=== PATIENT | male | born 1955 | race Caucasian/White ===

== ENCOUNTER 2021-03-07 22:45 | Inpatient (IN) | payer BC ==
[2021-03-07] MEDS ORDERED: Lidocaine Viscous Sol 2% 15 ml UD Cup ONE (23:19)
[2021-03-08 00:23] LABS: ALT (SGPT) 9 U/L (8-55); AST (SGOT) 11 U/L (5-34); Alkaline Phosphatase 55 U/L (40-110); Anion Gap 12 mmol/L (10-20); BUN (Urea Nitrogen) 24 mg/dL (8.4-25.7); Bilirubin, Total 0.4 mg/dL (0.2-1.2); Calc. Creatinine Clearance 0 mL/min (70-130); Calcium 7.6 mg/dL (7.8-10.44); Carbon Dioxide 24 mmol/L (23-31); Chloride 107 mmol/L (98-107); Glucose 97 mg/dL (80-115); Lipase 6 U/L (8-78); Magnesium 1.7 mg/dL (1.6-2.6); Sodium 141 mmol/L (136-145)
[2021-03-08 00:25] LABS: #Lymphocytes 0.2 thou/uL (1.20-3.40); #Monocytes 0.1 thou/uL (0.11-0.59); #Neutrophils 1.2 thou/uL (1.40-6.50); %Eosinophils 0.2 % (0.0-10.0); %Lymphocytes 13.4 % (21.0-51.0); %Monocytes 7.4 % (0.0-10.0); Hemoglobin 9.7 g/dL (14.0-18.0); MDiff Complete? YES; Mean Corpuscular HGB CONC 32.7 g/dL (32.0-36.0); Mean Corpuscular Hemoglobin 26.2 pg (27.0-31.0); Mean Corpuscular Volume 80.2 fL (78.0-98.0); Mean Platelet Volume 7.9 fL (7.4-10.4); Platelet Count 224 thou/uL (130-400); RBC Distribution Width 19.9 % (11.5-14.5); Red Blood Cell (RBC) Count 3.69 mill/uL (4.70-6.10); Reflex for Review?? YES; White Blood Cell (WBC) Count 1.5 thou/uL (4.8-10.8)
[2021-03-08 00:26] LABS: Band 44 % (5-11); Hypochromia SLIGHT = 6-15 cells (100X) (0-5/hpf); Lymphocytes 8 % (21-51); Monocytes 6 % (0-10); Neutrophil 42 % (42-75); Platelet Morphology Comment Appears Adequate
[2021-03-08 00:28] LABS: Potassium 2.2 mmol/L (3.5-5.1)
[2021-03-08] MEDS ORDERED: Potassium Chloride 20 MEQ TAB ONE (00:51)
[2021-03-08] MEDS ORDERED: Potassium Chloride 20 MEQ/100 ML PREMIX BAG ONE (01:27)
[2021-03-08] MEDS ORDERED: Acetaminophen 325 MG TAB PO PRN (03:46)
[2021-03-08] MEDS ORDERED: Norepinephrine 8 MG/0.9% NS 250 ML ONE (04:11)
[2021-03-08] MEDS ORDERED: Ondansetron PF 4 MG/2 ML Vial ONE ×2 (04:34→04:40)
[2021-03-08] MEDS ORDERED: Piperacillin/Tazobactam 3.375 GM VIAL ONE (04:56)
[2021-03-08 05:19] LABS: SARS-CoV-2 NAA Rapid Test Not Detected (NotDetected)
[2021-03-08 05:29] LABS: Bilirubin Negative (Negative); Blood, Urine Negative (Negative); Clarity Clear (Clear); Glucose, Urine (Dipstick) Normal (Negative); Ketone, Urine Negative (Negative); Leukocyte Negative Leu/uL (Negative); Mucous/LPF 3+ LPF (<2+); Nitrite Negative (Negative); Protein, Urine (Dipstick) 30 mg/dL (Neg-Trace); Squamous Epithelial None Seen HPF (0-3); Urobilinogen Normal mg/dL (Less than 2)
[2021-03-08 05:31] LABS: Bacteria/HPF 1+ HPF (None Seen); Specific Gravity, Urine 1.044 (1.002-1.036)
[2021-03-08] MEDS: Potassium Chloride 20 MEQ in Premix Bag 1 BAG IVPB SCH (07:06)
[2021-03-08] MEDS: Sodium Chloride 0.9% 1,000 ML IV SCH ×2 (07:43→12:58)
[2021-03-08] MEDS ORDERED: Norepinephrine 8 MG/0.9% NS 250 ML IVPB SCH (07:45)
[2021-03-08] MEDS ORDERED: Piperacillin/Tazobactam 3.375 GM in Sodium Chloride 0.9% 100 ML IVPB SCH (08:00)
[2021-03-08] MEDS ORDERED: Sodium Chloride 0.9% (PF) 10 ML VIAL FS PRN (09:30)
[2021-03-08] MEDS ORDERED: Electrolyte Replacement Protocol FS PRN (09:30)
[2021-03-08] MEDS ORDERED: Electrolyte Replacement Protocol 1 EACH FS SCH (09:30)
[2021-03-08] MEDS: Pantoprazole 40 MG VIAL IVP SCH ×2 (09:52→20:23)
[2021-03-08 10:24] LABS: Anion Gap 7 mmol/L (10-20); BUN (Urea Nitrogen) 19 mg/dL (8.4-25.7); Calc. Creatinine Clearance 116 mL/min (70-130); Calcium 5.1 mg/dL (7.8-10.44); Carbon Dioxide 16 mmol/L (23-31); Chloride 122 mmol/L (98-107); Glucose 74 mg/dL (80-115); Magnesium 1.2 mg/dL (1.6-2.6); Potassium 2.3 mmol/L (3.5-5.1); Sodium 143 mmol/L (136-145)
[2021-03-08] MEDS ORDERED: Magnesium 2 GM/50 ML(in water) 2 GM in Premix Bag 1 BAG IVPB SCH ×2 (10:30→11:15)
[2021-03-08] MEDS ORDERED: Enoxaparin Sodium 40 MG/0.4 ML SYRINGE SC SCH (11:00)
[2021-03-08] MEDS ORDERED: Potassium Chloride 40 MEQ in Premix Bag 1 BAG IVPB SCH (11:15)
[2021-03-08] MEDS: Potassium Chloride 40 MEQ in Premix Bag 1 BAG IVPB SCH ×2 (11:27→12:58)
[2021-03-08] MEDS: Piperacillin/Tazobactam 3.375 GM in Sodium Chloride 0.9% 100 ML IVPB SCH ×2 (12:58→20:24)
[2021-03-08] MEDS: Ondansetron PF 4 MG/2 ML Vial IVP PRN (13:04)
[2021-03-08] MEDS ORDERED: Iopamidol 370 76% 100 ML VIAL ONE (14:26)
[2021-03-08 14:54] LABS: Bacteria/HPF None Seen HPF (None Seen); Bilirubin Negative (Negative); Blood, Urine Negative (Negative); Clarity Clear (Clear); Glucose, Urine (Dipstick) Normal (Negative); Ketone, Urine Negative (Negative); Leukocyte Negative Leu/uL (Negative); Nitrite Negative (Negative); Protein, Urine (Dipstick) 30 mg/dL (Neg-Trace); Squamous Epithelial None Seen HPF (0-3); Urobilinogen Normal mg/dL (Less than 2); WBC/HPF 0-3 HPF (0-3); pH, Urine 5.5 (5.0-9.0)
[2021-03-08 14:56] LABS: Specific Gravity, Urine 1.056 (1.002-1.036)
[2021-03-08 14:57] LABS: Urine Culture Reflex No No
[2021-03-08 16:46] LABS: Potassium 4.4 mmol/L (3.5-5.1)
[2021-03-08] MEDS: Morphine 4 MG/ML VIAL SLOW IVP PRN (20:45)
[2021-03-09] MEDS: Sodium Chloride 0.9% 1,000 ML IV SCH ×4 (00:58→21:46)
[2021-03-09 04:44] LABS: Band 52 % (5-11); Hemoglobin 8.8 g/dL (14.0-18.0); Lymphocytes 2 % (21-51); MDiff Complete? YES; Mean Corpuscular HGB CONC 31.4 g/dL (32.0-36.0); Mean Corpuscular Volume 82.6 fL (78.0-98.0); Mean Platelet Volume 8.2 fL (7.4-10.4); Monocytes 3 % (0-10); Myelocyte 1 % (0-0); Neutrophil 42 % (42-75); Platelet Count 212 thou/uL (130-400); Platelet Morphology Comment Appears Adequate; RBC Distribution Width 19.8 % (11.5-14.5); RBC Morphology Normal; Red Blood Cell (RBC) Count 3.39 mill/uL (4.70-6.10); White Blood Cell (WBC) Count 16.5 thou/uL (4.8-10.8)
[2021-03-09 04:46] LABS: ALT (SGPT) 21 U/L (8-55); AST (SGOT) 54 U/L (5-34); Albumin 1.7 g/dL (3.4-4.8); Alkaline Phosphatase 121 U/L (40-110); Anion Gap 11 mmol/L (10-20); BUN (Urea Nitrogen) 29 mg/dL (8.4-25.7); Bilirubin, Total 0.5 mg/dL (0.2-1.2); Calc. Creatinine Clearance 70 mL/min (70-130); Calcium 7.2 mg/dL (7.8-10.44); Carbon Dioxide 19 mmol/L (23-31); Chloride 114 mmol/L (98-107); Glucose 74 mg/dL (80-115); Potassium 3.8 mmol/L (3.5-5.1); Protein, Total 3.7 g/dL (5.8-8.1); Sodium 140 mmol/L (136-145)
[2021-03-09] MEDS: Piperacillin/Tazobactam 3.375 GM in Sodium Chloride 0.9% 100 ML IVPB SCH ×3 (05:22→20:05)
[2021-03-09] MEDS ORDERED: Magnesium 2 GM/50 ML(in water) 2 GM in Premix Bag 1 BAG IVPB SCH (07:00)
[2021-03-09] MEDS: Morphine 4 MG/ML VIAL SLOW IVP PRN ×2 (08:47→20:03)
[2021-03-09] MEDS: Enoxaparin Sodium 40 MG/0.4 ML SYRINGE SC SCH (08:50)
[2021-03-09] MEDS: Pantoprazole 40 MG VIAL IVP SCH ×2 (08:50→20:04)
[2021-03-10] MEDS: Morphine 4 MG/ML VIAL SLOW IVP PRN ×2 (01:12→14:39)
[2021-03-10 04:59] LABS: Band 27 % (5-11); Hemoglobin 9.2 g/dL (14.0-18.0); Hypochromia SLIGHT = 6-15 cells (100X) (0-5/hpf); Lymphocytes 6 % (21-51); MDiff Complete? YES; Mean Corpuscular HGB CONC 31.6 g/dL (32.0-36.0); Mean Corpuscular Hemoglobin 26.1 pg (27.0-31.0); Mean Corpuscular Volume 82.7 fL (78.0-98.0); Mean Platelet Volume 7.9 fL (7.4-10.4); Monocytes 4 % (0-10); Neutrophil 63 % (42-75); Platelet Count 164 thou/uL (130-400); Platelet Morphology Comment Appears Adequate; RBC Distribution Width 19.8 % (11.5-14.5); Red Blood Cell (RBC) Count 3.51 mill/uL (4.70-6.10); White Blood Cell (WBC) Count 16.3 thou/uL (4.8-10.8)
[2021-03-10 05:05] LABS: ALT (SGPT) 26 U/L (8-55); AST (SGOT) 39 U/L (5-34); Albumin 1.8 g/dL (3.4-4.8); Alkaline Phosphatase 207 U/L (40-110); Anion Gap 11 mmol/L (10-20); BUN (Urea Nitrogen) 36 mg/dL (8.4-25.7); Bilirubin, Total 0.5 mg/dL (0.2-1.2); Calc. Creatinine Clearance 59 mL/min (70-130); Calcium 7.8 mg/dL (7.8-10.44); Carbon Dioxide 20 mmol/L (23-31); Chloride 111 mmol/L (98-107); Globulin 2.3 g/dL (2.4-3.5); Glucose 71 mg/dL (80-115); Magnesium 2.3 mg/dL (1.6-2.6); Potassium 4.1 mmol/L (3.5-5.1); Protein, Total 4.1 g/dL (5.8-8.1); Sodium 138 mmol/L (136-145)
[2021-03-10] MEDS: Sodium Chloride 0.9% 1,000 ML IV SCH ×3 (06:36→18:13)
[2021-03-10] MEDS: Piperacillin/Tazobactam 3.375 GM in Sodium Chloride 0.9% 100 ML IVPB SCH ×3 (06:37→20:53)
[2021-03-10] MEDS: Pantoprazole 40 MG VIAL IVP SCH ×2 (09:38→20:53)
[2021-03-10] MEDS: Enoxaparin Sodium 40 MG/0.4 ML SYRINGE SC SCH (09:38)
[2021-03-10 14:24] LABS: PTT 60.2 sec (22.9-36.1)
[2021-03-10 14:25] LABS: INR-International Normal Ratio 1.3; Prothrombin Time 16.7 sec (12.0-14.7)
[2021-03-10] MEDS ORDERED: Sodium Bicarbonate 2.5 MEQ/5 ML VIAL ONE (15:57)
[2021-03-10] MEDS ORDERED: Lidocaine 1% PF 5 ML VIAL ONE (15:57)
[2021-03-11] MEDS: Sodium Chloride 0.9% 1,000 ML IV SCH ×2 (04:48→10:13)
[2021-03-11] MEDS: Piperacillin/Tazobactam 3.375 GM in Sodium Chloride 0.9% 100 ML IVPB SCH ×3 (04:49→20:19)
[2021-03-11 05:39] LABS: Magnesium 2.3 mg/dL (1.6-2.6)
[2021-03-11] MEDS: Morphine 4 MG/ML VIAL SLOW IVP PRN ×2 (07:13→20:39)
[2021-03-11] MEDS: Pantoprazole 40 MG VIAL IVP SCH ×2 (10:10→20:20)
[2021-03-11] MEDS: Enoxaparin Sodium 40 MG/0.4 ML SYRINGE SC SCH (10:11)
[2021-03-12] MEDS: Piperacillin/Tazobactam 3.375 GM in Sodium Chloride 0.9% 100 ML IVPB SCH ×3 (05:20→20:41)
[2021-03-12] MEDS: Sodium Chloride 0.9% 1,000 ML IV SCH ×2 (05:20→20:41)
[2021-03-12] MEDS: Pantoprazole 40 MG VIAL IVP SCH ×2 (08:44→20:41)
[2021-03-12] MEDS: Enoxaparin Sodium 40 MG/0.4 ML SYRINGE SC SCH (08:45)
[2021-03-12 14:04] LABS: ALT (SGPT) 18 U/L (8-55); AST (SGOT) 23 U/L (5-34); Albumin 1.6 g/dL (3.4-4.8); Alkaline Phosphatase 403 U/L (40-110); Anion Gap 11 mmol/L (10-20); BUN (Urea Nitrogen) 26 mg/dL (8.4-25.7); Bilirubin, Total 0.4 mg/dL (0.2-1.2); Calc. Creatinine Clearance 119 mL/min (70-130); Calcium 7.6 mg/dL (7.8-10.44); Carbon Dioxide 19 mmol/L (23-31); Chloride 113 mmol/L (98-107); Globulin 2.7 g/dL (2.4-3.5); Glucose 68 mg/dL (80-115); Potassium 3.6 mmol/L (3.5-5.1); Protein, Total 4.3 g/dL (5.8-8.1); Sodium 139 mmol/L (136-145)
[2021-03-12 14:05] LABS: Anisocytosis SLIGHT = 6-15 cells (100X) (0-5/hpf); Band 4 % (5-11); Burr Cells SLIGHT = 2-5 cells (100X) (0-1/hpf); Hemoglobin 6.6 g/dL (14.0-18.0); Hypochromia SLIGHT = 6-15 cells (100X) (0-5/hpf); Lymphocytes 7 % (21-51); MDiff Complete? YES; Mean Corpuscular Hemoglobin 25.4 pg (27.0-31.0); Mean Corpuscular Volume 81.7 fL (78.0-98.0); Mean Platelet Volume 8.2 fL (7.4-10.4); Monocytes 4 % (0-10); Neutrophil 85 % (42-75); Ovalocytes SLIGHT = 2-5 cells (100X) (0-1/hpf); Platelet Count 171 thou/uL (130-400); Platelet Morphology Comment Appears Adequate; Polychromasia SLIGHT = 2-3 cells (100X) (0-2/hpf); RBC Distribution Width 19.4 % (11.5-14.5); White Blood Cell (WBC) Count 12.1 thou/uL (4.8-10.8)
[2021-03-12] MEDS: Morphine 4 MG/ML VIAL SLOW IVP PRN (14:25)
[2021-03-13] MEDS: Piperacillin/Tazobactam 3.375 GM in Sodium Chloride 0.9% 100 ML IVPB SCH ×3 (05:53→21:31)
[2021-03-13] MEDS: Pantoprazole 40 MG VIAL IVP SCH ×2 (09:53→21:30)
[2021-03-13] MEDS: Enoxaparin Sodium 40 MG/0.4 ML SYRINGE SC SCH (09:53)
[2021-03-13] MEDS ORDERED: Iopamidol-370 76% 500 ML 1 ML ONE (12:32)
[2021-03-13] MEDS: Sodium Chloride 0.9% 1,000 ML IV SCH ×2 (14:14→19:53)
[2021-03-13] MEDS: Morphine 4 MG/ML VIAL SLOW IVP PRN (19:50)
[2021-03-13 20:05] LABS: #Lymphocytes 0.5 thou/uL (1.20-3.40); #Monocytes 0.4 thou/uL (0.11-0.59); #Neutrophils 6.5 thou/uL (1.40-6.50); %Basophils 0.1 % (0.0-1.0); %Lymphocytes 6.3 % (21.0-51.0); %Monocytes 4.9 % (0.0-10.0); %Neutrophils 88.7 % (42.0-75.0); Hemoglobin 8.5 g/dL (14.0-18.0); Mean Corpuscular HGB CONC 30.7 g/dL (32.0-36.0); Mean Corpuscular Hemoglobin 25.2 pg (27.0-31.0); Mean Corpuscular Volume 82.1 fL (78.0-98.0); Mean Platelet Volume 8.4 fL (7.4-10.4); Platelet Count 160 thou/uL (130-400); RBC Distribution Width 19.7 % (11.5-14.5); Red Blood Cell (RBC) Count 3.36 mill/uL (4.70-6.10); White Blood Cell (WBC) Count 7.3 thou/uL (4.8-10.8)
[2021-03-13] MEDS: Ondansetron PF 4 MG/2 ML Vial IVP PRN (20:12)
[2021-03-13 20:25] LABS: ALT (SGPT) 14 U/L (8-55); AST (SGOT) 15 U/L (5-34); Albumin 1.5 g/dL (3.4-4.8); Alkaline Phosphatase 416 U/L (40-110); Anion Gap 10 mmol/L (10-20); BUN (Urea Nitrogen) 21 mg/dL (8.4-25.7); Bilirubin, Total 0.7 mg/dL (0.2-1.2); Calc. Creatinine Clearance 134 mL/min (70-130); Calcium 7.4 mg/dL (7.8-10.44); Carbon Dioxide 18 mmol/L (23-31); Chloride 114 mmol/L (98-107); Globulin 2.4 g/dL (2.4-3.5); Glucose 60 mg/dL (80-115); Potassium 3.3 mmol/L (3.5-5.1); Protein, Total 3.9 g/dL (5.8-8.1); Sodium 139 mmol/L (136-145)
[2021-03-13] MEDS ORDERED: Furosemide 20 MG/2 ML VIAL SLOW IVP SCH (20:30)
[2021-03-14] MEDS ORDERED: Potassium Chloride 20 MEQ in Premix Bag 1 BAG IVPB SCH ×2 (00:15→00:30)
[2021-03-14 04:56] LABS: ALT (SGPT) 15 U/L (8-55); AST (SGOT) 18 U/L (5-34); Albumin 1.6 g/dL (3.4-4.8); Alkaline Phosphatase 447 U/L (40-110); Anion Gap 15 mmol/L (10-20); BUN (Urea Nitrogen) 22 mg/dL (8.4-25.7); Bilirubin, Total 0.8 mg/dL (0.2-1.2); Calc. Creatinine Clearance 134 mL/min (70-130); Calcium 7.7 mg/dL (7.8-10.44); Carbon Dioxide 15 mmol/L (23-31); Chloride 114 mmol/L (98-107); Globulin 2.7 g/dL (2.4-3.5); Glucose 61 mg/dL (80-115); Potassium 3.6 mmol/L (3.5-5.1); Protein, Total 4.3 g/dL (5.8-8.1); Sodium 140 mmol/L (136-145)
[2021-03-14] MEDS: Sodium Chloride 0.9% 1,000 ML IV SCH ×3 (05:37→12:07)
[2021-03-14] MEDS: Piperacillin/Tazobactam 3.375 GM in Sodium Chloride 0.9% 100 ML IVPB SCH ×3 (05:58→20:51)
[2021-03-14 06:28] LABS: Hemoglobin 8.9 g/dL (14.0-18.0); Mean Corpuscular HGB CONC 30.4 g/dL (32.0-36.0); Mean Corpuscular Volume 82.2 fL (78.0-98.0); Mean Platelet Volume 8.3 fL (7.4-10.4); Platelet Count 183 thou/uL (130-400); RBC Distribution Width 19.9 % (11.5-14.5); Red Blood Cell (RBC) Count 3.58 mill/uL (4.70-6.10)
[2021-03-14] MEDS: Morphine 4 MG/ML VIAL SLOW IVP PRN ×2 (08:54→21:05)
[2021-03-14] MEDS: Pantoprazole 40 MG VIAL IVP SCH ×2 (08:54→20:51)
[2021-03-14] MEDS: Enoxaparin Sodium 40 MG/0.4 ML SYRINGE SC SCH (09:09)
[2021-03-14] MEDS ORDERED: Furosemide 40 MG/4 ML VIAL SLOW IVP SCH (12:30)
[2021-03-14 15:36] LABS: SARS-CoV-2 PCR by NAA Not Detected (NotDetected)
[2021-03-15] MEDS: Piperacillin/Tazobactam 3.375 GM in Sodium Chloride 0.9% 100 ML IVPB SCH ×3 (05:31→21:52)
[2021-03-15] MEDS: Enoxaparin Sodium 40 MG/0.4 ML SYRINGE SC SCH (09:49)
[2021-03-15] MEDS: Pantoprazole 40 MG VIAL IVP SCH ×2 (09:50→21:17)
[2021-03-15] MEDS ORDERED: Sodium Bicarbonate 2.5 MEQ/5 ML VIAL ONE (11:30)
[2021-03-15] MEDS ORDERED: Lidocaine 1% PF 5 ML VIAL ONE (11:31)
[2021-03-15] MEDS ORDERED: Furosemide 40 MG/4 ML VIAL SLOW IVP SCH (13:45)
[2021-03-15] MEDS: Nystatin 500,000 UNITS/5 ML UDCUP SSW SCH ×3 (13:59→21:17)
[2021-03-15] MEDS ORDERED: Enoxaparin Sodium 80 MG/0.8 ML SYRINGE SC SCH ×2 (15:45→21:00)
[2021-03-15] MEDS: Morphine 4 MG/ML VIAL SLOW IVP PRN (21:22)
[2021-03-16] MEDS: Piperacillin/Tazobactam 3.375 GM in Sodium Chloride 0.9% 100 ML IVPB SCH (05:47)
[2021-03-16] MEDS: Enoxaparin Sodium 80 MG/0.8 ML SYRINGE SC SCH ×2 (05:48→18:19)
[2021-03-16] MEDS: Nystatin 500,000 UNITS/5 ML UDCUP SSW SCH ×4 (09:58→20:55)
[2021-03-16] MEDS: Pantoprazole 40 MG VIAL IVP SCH ×2 (09:58→20:55)
[2021-03-16 13:23] LABS: Hemoglobin 8.7 g/dL (14.0-18.0); Mean Corpuscular HGB CONC 29.6 g/dL (32.0-36.0); Mean Corpuscular Hemoglobin 24.4 pg (27.0-31.0); Mean Corpuscular Volume 82.4 fL (78.0-98.0); Mean Platelet Volume 8.3 fL (7.4-10.4); Platelet Count 234 thou/uL (130-400); RBC Distribution Width 20.2 % (11.5-14.5); Red Blood Cell (RBC) Count 3.56 mill/uL (4.70-6.10); White Blood Cell (WBC) Count 12.6 thou/uL (4.8-10.8)
[2021-03-16 13:39] LABS: ALT (SGPT) 12 U/L (8-55); AST (SGOT) 12 U/L (5-34); Albumin 1.8 g/dL (3.4-4.8); Alkaline Phosphatase 313 U/L (40-110); Anion Gap 12 mmol/L (10-20); BUN (Urea Nitrogen) 26 mg/dL (8.4-25.7); Bilirubin, Total 0.4 mg/dL (0.2-1.2); Calc. Creatinine Clearance 115 mL/min (70-130); Calcium 7.8 mg/dL (7.8-10.44); Carbon Dioxide 21 mmol/L (23-31); Chloride 114 mmol/L (98-107); Globulin 2.7 g/dL (2.4-3.5); Glucose 109 mg/dL (80-115); Potassium 3.3 mmol/L (3.5-5.1); Protein, Total 4.5 g/dL (5.8-8.1); Sodium 144 mmol/L (136-145)
[2021-03-16 15:17] VITALS: BMI 26.1
[2021-03-16] MEDS: Morphine 4 MG/ML VIAL SLOW IVP PRN (20:54)
[2021-03-16] MEDS: Amoxicillin/Potassium Clav 875 MG TAB PO SCH ×2 (20:55→21:06)
[2021-03-17] MEDS: Morphine 4 MG/ML VIAL SLOW IVP PRN ×2 (03:27→22:24)
[2021-03-17] MEDS: Enoxaparin Sodium 80 MG/0.8 ML SYRINGE SC SCH ×2 (06:00→17:12)
[2021-03-17] MEDS ORDERED: Potassium Chloride 20 MEQ TAB PO SCH (09:00)
[2021-03-17] MEDS ORDERED: Furosemide 20 MG/2 ML VIAL SLOW IVP SCH ×2 (09:00→22:30)
[2021-03-17] MEDS: Nystatin 500,000 UNITS/5 ML UDCUP SSW SCH ×4 (09:56→20:26)
[2021-03-17] MEDS: Amoxicillin/Potassium Clav 600 mg/5 ml Oral Suspension PO SCH ×2 (09:56→20:26)
[2021-03-17] MEDS: Pantoprazole 40 MG VIAL IVP SCH ×2 (09:56→20:26)
[2021-03-17] MEDS ORDERED: Potassium Chloride 20 MEQ in Premix Bag 1 BAG IVPB SCH (10:15)
[2021-03-18] MEDS: Enoxaparin Sodium 80 MG/0.8 ML SYRINGE SC SCH ×2 (05:24→17:25)
[2021-03-18] MEDS ORDERED: Furosemide 20 MG/2 ML VIAL SLOW IVP SCH (09:00)
[2021-03-18] MEDS: Pantoprazole 40 MG VIAL IVP SCH ×2 (09:40→20:47)
[2021-03-18] MEDS: Nystatin 500,000 UNITS/5 ML UDCUP SSW SCH ×4 (09:40→20:47)
[2021-03-18] MEDS: Amoxicillin/Potassium Clav 600 mg/5 ml Oral Suspension PO SCH ×2 (09:45→20:47)
[2021-03-18 11:22] LABS: #Lymphocytes 0.5 thou/uL (1.20-3.40); #Monocytes 0.2 thou/uL (0.11-0.59); #Neutrophils 9.7 thou/uL (1.40-6.50); %Eosinophils 0.1 % (0.0-10.0); %Lymphocytes 4.8 % (21.0-51.0); %Monocytes 2.1 % (0.0-10.0); %Neutrophils 93.1 % (42.0-75.0); Mean Corpuscular HGB CONC 29.9 g/dL (32.0-36.0); Mean Corpuscular Hemoglobin 24.2 pg (27.0-31.0); Mean Corpuscular Volume 81.1 fL (78.0-98.0); Mean Platelet Volume 8.5 fL (7.4-10.4); Platelet Count 239 thou/uL (130-400); RBC Distribution Width 20.3 % (11.5-14.5); Red Blood Cell (RBC) Count 3.73 mill/uL (4.70-6.10); White Blood Cell (WBC) Count 10.4 thou/uL (4.8-10.8)
[2021-03-18 11:34] LABS: ALT (SGPT) 11 U/L (8-55); AST (SGOT) 12 U/L (5-34); Albumin 1.8 g/dL (3.4-4.8); Alkaline Phosphatase 272 U/L (40-110); Anion Gap 12 mmol/L (10-20); BUN (Urea Nitrogen) 23 mg/dL (8.4-25.7); Bilirubin, Total 0.4 mg/dL (0.2-1.2); Calc. Creatinine Clearance 150 mL/min (70-130); Calcium 7.8 mg/dL (7.8-10.44); Carbon Dioxide 23 mmol/L (23-31); Chloride 114 mmol/L (98-107); Glucose 87 mg/dL (80-115); Potassium 3.2 mmol/L (3.5-5.1); Protein, Total 4.8 g/dL (5.8-8.1); Sodium 146 mmol/L (136-145)
[2021-03-18 12:34] LABS: MDiff Complete? YES; Ovalocytes SLIGHT = 2-5 cells (100X) (0-1/hpf); Platelet Morphology Comment Appears Adequate; Polychromasia SLIGHT = 2-3 cells (100X) (0-2/hpf)
[2021-03-18] MEDS: Ondansetron PF 4 MG/2 ML Vial IVP PRN (13:04)
[2021-03-18] MEDS ORDERED: Potassium Chloride 20 MEQ TAB PO SCH ×2 (14:00→15:45)
[2021-03-18] MEDS ORDERED: Potassium Bicarbonate/Cit Ac 20 MEQ TAB PO SCH (15:15)
[2021-03-18] MEDS ORDERED: Potassium Chloride 20 MEQ in Premix Bag 1 BAG IVPB SCH (17:00)
[2021-03-18] MEDS: Furosemide 20 MG/2 ML VIAL SLOW IVP SCH (20:47)
[2021-03-18] MEDS: Morphine 4 MG/ML VIAL SLOW IVP PRN (21:07)
[2021-03-19] MEDS: Enoxaparin Sodium 80 MG/0.8 ML SYRINGE SC SCH ×2 (05:03→18:22)
[2021-03-19] MEDS: Furosemide 20 MG/2 ML VIAL SLOW IVP SCH ×2 (05:03→20:08)
[2021-03-19] MEDS: Pantoprazole 40 MG VIAL IVP SCH ×2 (08:58→20:08)
[2021-03-19] MEDS: Amoxicillin/Potassium Clav 600 mg/5 ml Oral Suspension PO SCH ×2 (08:58→20:08)
[2021-03-19] MEDS: Nystatin 500,000 UNITS/5 ML UDCUP SSW SCH ×4 (08:58→20:08)
[2021-03-19] MEDS: Morphine 4 MG/ML VIAL SLOW IVP PRN (20:07)
[2021-03-20] MEDS: Enoxaparin Sodium 80 MG/0.8 ML SYRINGE SC SCH ×2 (06:38→18:10)
[2021-03-20] MEDS: Furosemide 20 MG/2 ML VIAL SLOW IVP SCH ×2 (06:38→21:09)
[2021-03-20] MEDS: Amoxicillin/Potassium Clav 600 mg/5 ml Oral Suspension PO SCH ×2 (09:05→21:09)
[2021-03-20] MEDS: Nystatin 500,000 UNITS/5 ML UDCUP SSW SCH ×4 (09:05→21:09)
[2021-03-20] MEDS: Pantoprazole 40 MG VIAL IVP SCH ×2 (09:06→21:09)
[2021-03-20 11:35] LABS: #Lymphocytes 0.6 thou/uL (1.20-3.40); #Monocytes 0.2 thou/uL (0.11-0.59); #Neutrophils 8.2 thou/uL (1.40-6.50); %Lymphocytes 6.4 % (21.0-51.0); %Monocytes 1.8 % (0.0-10.0); %Neutrophils 91.8 % (42.0-75.0); Hemoglobin 8.4 g/dL (14.0-18.0); Mean Corpuscular HGB CONC 30.1 g/dL (32.0-36.0); Mean Corpuscular Volume 82.9 fL (78.0-98.0); Mean Platelet Volume 8.4 fL (7.4-10.4); Platelet Count 226 thou/uL (130-400); RBC Distribution Width 20.5 % (11.5-14.5); Red Blood Cell (RBC) Count 3.38 mill/uL (4.70-6.10); White Blood Cell (WBC) Count 8.9 thou/uL (4.8-10.8)
[2021-03-20 11:56] LABS: ALT (SGPT) 11 U/L (8-55); AST (SGOT) 14 U/L (5-34); Albumin 1.7 g/dL (3.4-4.8); Alkaline Phosphatase 210 U/L (40-110); Anion Gap 12 mmol/L (10-20); BUN (Urea Nitrogen) 23 mg/dL (8.4-25.7); Bilirubin, Total 0.3 mg/dL (0.2-1.2); Calc. Creatinine Clearance 141 mL/min (70-130); Carbon Dioxide 25 mmol/L (23-31); Chloride 112 mmol/L (98-107); Globulin 3.1 g/dL (2.4-3.5); Glucose 78 mg/dL (80-115); Protein, Total 4.8 g/dL (5.8-8.1); Sodium 146 mmol/L (136-145)
[2021-03-20 12:15] LABS: Potassium 2.8 mmol/L (3.5-5.1)
[2021-03-20] MEDS: Morphine 4 MG/ML VIAL SLOW IVP PRN ×2 (12:41→21:09)
[2021-03-20] MEDS: Potassium Chloride 20 MEQ in Premix Bag 1 BAG IVPB SCH ×2 (12:55→18:04)
[2021-03-20] MEDS: Potassium Chloride 20 MEQ TAB PO SCH ×2 (12:55→18:03)
[2021-03-21] MEDS: Potassium Chloride 20 MEQ in Premix Bag 1 BAG IVPB SCH (01:23)
[2021-03-21 06:20] LABS: ALT (SGPT) 12 U/L (8-55); AST (SGOT) 15 U/L (5-34); Albumin 1.7 g/dL (3.4-4.8); Alkaline Phosphatase 202 U/L (40-110); Anion Gap 12 mmol/L (10-20); BUN (Urea Nitrogen) 23 mg/dL (8.4-25.7); Bilirubin, Total 0.3 mg/dL (0.2-1.2); Calc. Creatinine Clearance 143 mL/min (70-130); Calcium 7.9 mg/dL (7.8-10.44); Carbon Dioxide 25 mmol/L (23-31); Chloride 113 mmol/L (98-107); Globulin 2.9 g/dL (2.4-3.5); Glucose 69 mg/dL (80-115); Protein, Total 4.6 g/dL (5.8-8.1); Sodium 146 mmol/L (136-145)
[2021-03-21 06:24] LABS: #Lymphocytes 0.6 thou/uL (1.20-3.40); #Monocytes 0.3 thou/uL (0.11-0.59); #Neutrophils 8.6 thou/uL (1.40-6.50); %Eosinophils 0.1 % (0.0-10.0); %Lymphocytes 6.1 % (21.0-51.0); %Neutrophils 90.8 % (42.0-75.0); Hemoglobin 8.3 g/dL (14.0-18.0); Mean Corpuscular Hemoglobin 24.9 pg (27.0-31.0); Mean Corpuscular Volume 83.1 fL (78.0-98.0); Mean Platelet Volume 8.1 fL (7.4-10.4); Platelet Count 229 thou/uL (130-400); RBC Distribution Width 20.7 % (11.5-14.5); Red Blood Cell (RBC) Count 3.31 mill/uL (4.70-6.10); White Blood Cell (WBC) Count 9.5 thou/uL (4.8-10.8)
[2021-03-21] MEDS: Furosemide 20 MG/2 ML VIAL SLOW IVP SCH ×2 (06:30→20:32)
[2021-03-21] MEDS: Enoxaparin Sodium 80 MG/0.8 ML SYRINGE SC SCH ×2 (06:30→17:09)
[2021-03-21] MEDS: Nystatin 500,000 UNITS/5 ML UDCUP SSW SCH ×4 (10:00→20:32)
[2021-03-21] MEDS: Amoxicillin/Potassium Clav 600 mg/5 ml Oral Suspension PO SCH ×2 (10:00→20:32)
[2021-03-21] MEDS: Pantoprazole 40 MG VIAL IVP SCH ×2 (10:01→20:32)
[2021-03-21 16:25] LABS: SARS-CoV-2 PCR by NAA Not Detected (NotDetected)
[2021-03-22] MEDS: Furosemide 20 MG/2 ML VIAL SLOW IVP SCH (05:46)
[2021-03-22] MEDS: Enoxaparin Sodium 80 MG/0.8 ML SYRINGE SC SCH (05:47)
[2021-03-22 06:59] LABS: #Lymphocytes 0.7 thou/uL (1.20-3.40); #Monocytes 0.3 thou/uL (0.11-0.59); #Neutrophils 9.6 thou/uL (1.40-6.50); %Basophils 0.1 % (0.0-1.0); %Eosinophils 0.1 % (0.0-10.0); %Lymphocytes 6.4 % (21.0-51.0); %Monocytes 3.2 % (0.0-10.0); %Neutrophils 90.2 % (42.0-75.0); Hemoglobin 8.3 g/dL (14.0-18.0); Mean Corpuscular HGB CONC 30.5 g/dL (32.0-36.0); Mean Corpuscular Hemoglobin 25.2 pg (27.0-31.0); Mean Corpuscular Volume 82.5 fL (78.0-98.0); Platelet Count 223 thou/uL (130-400); RBC Distribution Width 20.7 % (11.5-14.5); Red Blood Cell (RBC) Count 3.31 mill/uL (4.70-6.10); White Blood Cell (WBC) Count 10.7 thou/uL (4.8-10.8)
[2021-03-22 07:23] LABS: ALT (SGPT) 13 U/L (8-55); AST (SGOT) 16 U/L (5-34); Albumin 1.8 g/dL (3.4-4.8); Alkaline Phosphatase 167 U/L (40-110); Anion Gap 12 mmol/L (10-20); BUN (Urea Nitrogen) 22 mg/dL (8.4-25.7); Bilirubin, Total 0.3 mg/dL (0.2-1.2); Calc. Creatinine Clearance 141 mL/min (70-130); Calcium 7.7 mg/dL (7.8-10.44); Carbon Dioxide 26 mmol/L (23-31); Chloride 112 mmol/L (98-107); Globulin 2.8 g/dL (2.4-3.5); Glucose 65 mg/dL (80-115); Protein, Total 4.6 g/dL (5.8-8.1); Sodium 147 mmol/L (136-145)
[2021-03-22 07:28] LABS: Potassium 2.8 mmol/L (3.5-5.1)
[2021-03-22] MEDS: Pantoprazole 40 MG VIAL IVP SCH (09:16)
[2021-03-22] MEDS: Nystatin 500,000 UNITS/5 ML UDCUP SSW SCH ×3 (09:16→16:50)
[2021-03-22] MEDS: Amoxicillin/Potassium Clav 600 mg/5 ml Oral Suspension PO SCH (09:16)
[2021-03-22] MEDS: Potassium Chloride 20 MEQ in Premix Bag 1 BAG IVPB SCH ×3 (09:16→16:50)
[2021-03-22] MEDS: Potassium Chloride 20 MEQ TAB PO SCH ×2 (09:17→12:09)
[2021-03-22 09:42] VITALS: BP 100/70; TEMP 97.9
[2021-03-22] MEDS: Morphine 4 MG/ML VIAL SLOW IVP PRN (18:13)
[2021-03-22] MEDS ORDERED: Apixaban 5 MG TAB PO SCH (21:00)
[2021-03-22] MEDS ORDERED: Enoxaparin Sodium 80 MG/0.8 ML SYRINGE SC SCH (21:00)
== END 2021-03-22 20:30 | DRG 871 ==
LOC: ERS 22:45 → MERGE 03-08 03:11 → CCU 03-08 03:11 → MSONC 03-10 15:28
PROVIDERS: ADMIT Internal Medicine; ATTEND Internal Medicine
PROC: 3E033XZ Introduction of Vasopressor into Peripheral Vein, Percutaneous Approach (ICD-10-PCS; 2021-03-08)
PROC: 3E03329 Introduction of Other Anti-infective into Peripheral Vein, Percutaneous Approach (ICD-10-PCS; 2021-03-08)
PROC: 0W9G3ZZ Drainage of Peritoneal Cavity, Percutaneous Approach (ICD-10-PCS; principal; 2021-03-10)
DX: A41.9 Sepsis, unspecified organism (principal); K63.1 Perforation of intestine (nontraumatic); Z20.822 Contact with and (suspected) exposure to COVID-19; Z66 Do not resuscitate; K65.8 Other peritonitis; I26.99 Other pulmonary embolism without acute cor pulmonale; R65.21 Severe sepsis with septic shock; R57.1 Hypovolemic shock; E43 Unspecified severe protein-calorie malnutrition; E87.1 Hypo-osmolality and hyponatremia; E87.2 Acidosis; R64 Cachexia; C16.9 Malignant neoplasm of stomach, unspecified; C78.6 Secondary malignant neoplasm of retroperitoneum and peritoneum; R18.0 Malignant ascites; J90 Pleural effusion, not elsewhere classified; B37.0 Candidal stomatitis; I82.412 Acute embolism and thrombosis of left femoral vein; E87.6 Hypokalemia; E86.0 Dehydration; Z96.653 Presence of artificial knee joint, bilateral; E78.5 Hyperlipidemia, unspecified; I10 Essential (primary) hypertension; G62.9 Polyneuropathy, unspecified; E78.00 Pure hypercholesterolemia, unspecified; E11.40 Type 2 diabetes mellitus with diabetic neuropathy, unspecified; K52.9 Noninfective gastroenteritis and colitis, unspecified; K22.89 Other specified disease of esophagus; D64.9 Anemia, unspecified; Z90.49 Acquired absence of other specified parts of digestive tract; Z68.26 Body mass index [BMI] 26.0-26.9, adult; Z80.3 Family history of malignant neoplasm of breast; Z17.1 Estrogen receptor negative status [ER-]; Z87.11 Personal history of peptic ulcer disease; Z88.8 Allergy status to other drugs, medicaments and biological substances
CPT/HCPCS: 36415; 49083; 71045; 71275; 74177; 76705; 80048; 80053; 81003; 81015; 82274; 82705; 83605; 83630; 83690; 83735; 84484; 85025; 85027; 85060; 85610; 85730; 86850; 86900; 86901; 87040; 87045; 87046; 87324; 87427; 87449; 93005; 93970; 96365; 96366; 96375; C9113; J1642; J1650; J1940; J2270; J2405; J2543; J3475; J3480; J3490; J7050; Q9967; U0002; U0003; U0005

== ENCOUNTER 2021-03-31 04:57 | Emergency (ER) | payer MEDICARE, OTHER, BC ==
[2021-03-31 05:35] LABS: Mean Corpuscular Hemoglobin 24.8 pg (27.0-31.0); Mean Corpuscular Volume 83.5 fL (78.0-98.0); Red Blood Cell (RBC) Count 4.02 mill/uL (4.70-6.10); White Blood Cell (WBC) Count 8.6 thou/uL (4.8-10.8)
[2021-03-31] MEDS ORDERED: Morphine 4 MG/ML VIAL ONE (05:44)
[2021-03-31] MEDS ORDERED: Lorazepam 2 MG/ML VIAL ONE (05:44)
[2021-03-31 05:56] LABS: ALT (SGPT) 33 U/L (8-55); AST (SGOT) 40 U/L (5-34); Alkaline Phosphatase 346 U/L (40-110); Anion Gap 18 mmol/L (10-20); BUN (Urea Nitrogen) 79 mg/dL (8.4-25.7); Bilirubin, Total 0.8 mg/dL (0.2-1.2); Calc. Creatinine Clearance 0 mL/min (70-130); Calcium 7.7 mg/dL (7.8-10.44); Carbon Dioxide 22 mmol/L (23-31); Chloride 113 mmol/L (98-107); Potassium 4.1 mmol/L (3.5-5.1); Sodium 149 mmol/L (136-145)
[2021-03-31 06:09] LABS: Critical Call Chemistry PATIENT EXP PER LILA IN ER; Glucose 15 mg/dL (80-115)
[2021-03-31 06:29] LABS: Anisocytosis SLIGHT = 6-15 cells (100X) (0-5/hpf); Band 44 % (5-11); Lymphocytes 13 % (21-51); MDiff Complete? YES; Mean Corpuscular HGB CONC 29.7 g/dL (32.0-36.0); Mean Platelet Volume 8.8 fL (7.4-10.4); Metamyelocyte 2 % (0-0); Monocytes 3 % (0-10); Neutrophil 38 % (42-75); Nucleated RBC 2 % (0); Platelet Count 236 thou/uL (130-400); RBC Distribution Width 20.5 % (11.5-14.5)
== END 2021-03-31 06:05 | disposition expired ==
LOC: ERS 04:57
DX: I46.9 Cardiac arrest, cause unspecified (principal); C16.9 Malignant neoplasm of stomach, unspecified; E11.9 Type 2 diabetes mellitus without complications; E78.5 Hyperlipidemia, unspecified; I10 Essential (primary) hypertension
CPT/HCPCS: 80053; 85025; 96374; 96375; J2060; J2270